=== PATIENT | male | born 1955 ===

== ENCOUNTER 2017-09-17 17:46 | Observation (INO) | payer MEDICAID, OTHER ==
[2017-09-17] MEDS ORDERED: Sodium Chloride 0.9% 1,000 ML IV STA ×3 (18:00→20:47)
--- NOTE | 2017-09-17 18:22 | ED PDOC ---
Arrival/HPI <Theodore Lopez - Last Filed: 09/17/17 20:18> - General Historian: Patient, EMS - History of Present Illness Time/Duration: Prior to Arrival <Nadja Daigle - Last Filed: 09/17/17 21:19> - General Chief Complaint: Alcohol Ingestion Time Seen by Provider: 09/17/17 17:59 - History of Present Illness Narrative History of Present Illness (Text): 09/17/17 18:18 62yr old male [place] by ambulance [place]. pt admits to drinking alcohol and denies any complaints. history is limited due to intoxication. (Nadja Daigle) Past Medical History - Provider Review Nursing Documentation Reviewed: Yes - Travel History Have you recently traveled outside [place] w/in the past 3 mons?: No - Infectious Disease Hx of Infectious Diseases: None - Psychiatric Hx Substance Use: (unknown) <Nadja Daigle - Last Filed: 09/17/17 21:19> Family/Social History - Physician Review Nursing Documentation Reviewed: Yes Family/Social History: Unknown Family HX Smoking Status: Unknown If Ever Smoked Hx Alcohol Use: Yes Hx Substance Use: (unknown) <Nadja Daigle - Last Filed: 09/17/17 21:19> Allergies/Home Meds <Theodore Lopez - Last Filed: 09/17/17 20:18> <Nadja Daigle - Last Filed: 09/17/17 21:19> Allergies/Adverse Reactions: Allergies Unobtainable Allergy (Verified 09/17/17 17:55) Home Medications: Home Meds Medication Instructions Recorded Confirmed Unobtainable 09/17/17 09/17/17 Review of Systems - Review of Systems Systems not reviewed;Unavailable: Intoxicated Cardiovascular: absent: Chest Pain Gastrointestinal: absent: Abdominal Pain Musculoskeletal: absent: Arthralgias <Nadja Daigle - Last Filed: 09/17/17 21:19> Physical Exam Vital Signs Reviewed: Yes Temperature: Afebrile Blood Pressure: Hypotensive Pulse: Regular Respiratory Rate: Normal Appearance: Positive for: Well-Appearing, Non-Toxic, Comfortable, Unkept Pain Distress: None Mental Status: Positive for: other (alert) Finger Stick Blood Glucose: 73 - Systems Exam Head: Present: Atraumatic Pupils: Present: PERRL Mouth: Present: Moist Mucous Membranes Respiratory/Chest: Present: Clear to Auscultation, Good Air Exchange. No: Respiratory Distress, Accessory Muscle Use, Wheezes, Decreased Breath Sounds, Rhonchi Cardiovascular: Present: Regular Rate and Rhythm. No: Tachycardic Abdomen: No: Tenderness, Distention, Rebound, Guarding Back: Present: Normal Inspection, Other (no ecchymosis, no abrasions, no lacerations, no erythema.). No: Midline Tenderness, Paraspinal Tenderness Upper Extremity: Present: Other (abrasion to right hand. ). No: Tenderness, Swelling Lower Extremity: Present: Other (abrasion to left knee. abrasion to right thigh ; no tenderness. ) Skin: Present: Warm, Dry Psychiatric: Present: Alert, Intoxicated <Nadja Daigle - Last Filed: 09/17/17 21:19> Vital Signs Temp Pulse Resp BP Pulse Ox 09/17/17 21:18 65 18 104/65 100 09/17/17 19:38 66 19 118/74 100 09/17/17 18:55 80 18 102/70 100 09/17/17 17:56 97.6 F 82 17 90/62 L 90 L Medical Decision Making <Theodore Lopez - Last Filed: 09/17/17 20:18> <Nadja Daigle - Last Filed: 09/17/17 21:19> ED Course and Treatment: 09/17/17 18:22 62yr old male BIBA for intoxication and mildly hypotension found [place] the park. admits to drinking ETOH today. pt is intoxicated; able to answer few questions. pt seen and evaluated by dr. guerrier. bp 95/65; pt given 1L NS iv bolus ekg; normal sinus rhythm at 75 bpm normal axis normal intervals no ST elevations cxr; wnl cbc wbc; 14.1 cmp; wnl trop: wnl ETOH; [address]: FINDINGS: Brain: Lacunar infarct in the left basal ganglia. No hemorrhage. No significant white matter disease. Ventricles: Unremarkable. No ventriculomegaly. Bones/joints: See below. Soft tissues: Unremarkable. Sinuses: Unremarkable as visualized. No acute sinusitis. Mastoid air cells: Unremarkable as visualized. No mastoid effusion. Nasal cavity/septum: Deformity of the left nasal bone. IMPRESSION: No acute findings Tylenol wnl Salicylate: wnl Urine drug screen: Urinalysis: wnl 09/17/17 19:37 pt reassessment; pt speaking, more alert; after 3 liters vitals improved. banana bag added. case discussed with dr. lopez; case discussed with dr. hu; will admit observational status to tele for AMS, syncope Impression; AMS, alcohol use, syncope admit observational status to tele (Nadja Daigle) - Lab Interpretations Lab Results: 09/17/17 18:00 09/17/17 18:00 Lab Results 09/17/17 20:56: Urine Color Yellow, Urine Appearance Clear, Urine pH 6.0, Ur Specific [place] 1.020, Urine Protein Trace H, Urine Glucose (UA) Negative, Urine Ketones Negative, Urine Blood Negative, Urine Nitrate Negative, Urine Bilirubin Negative, Urine Urobilinogen 0.2, Ur Leukocyte Esterase Negative, Urine RBC Pending, Urine WBC Pending 09/17/17 18:00: pO2 163 H, VBG pH 7.28 L, VBG pCO2 42.0, VBG HCO3 19.7 L, VBG Total CO2 21.0 L, VBG O2 Sat (Calc) 99.4 H, VBG Base Excess -6.8 L, VBG Potassium 3.1 L, Sodium 145.0, Chloride 117.0 H, Glucose 94, Lactate 1.7, FiO2 21.0, Venous Blood Potassium 3.1 L 09/17/17 18:00: Salicylates < 1 L, Acetaminophen < 10.0 L 09/17/17 18:00: WBC 14.1 H, RBC 3.96, Hgb 13.2 L, Hct 38.1 L, MCV 96.2, MCH 33.3 , MCHC 34.6, RDW 14.0, Plt Count 261, MPV 9.1, Gran % 73.7 H, Lymph % (Auto) 19.2 L, Will % (Auto) 6.5 H, Eos % (Auto) 0.1 L, Baso % (Auto) 0.5, Gran # 10.37 H, Lymph # (Auto) 2.7, Will # (Auto) 0.9 H, Eos # (Auto) 0.0, Baso # (Auto ) 0.07 09/17/17 18:00: Alcohol, Quantitative 218 H 09/17/17 18:00: Sodium 146, Chloride 109 H, Potassium 4.3, Carbon Dioxide 23, Anion Gap 18, BUN 16, Creatinine 1.1, Est GFR ( Amer) > 60, Est GFR (Non- Af Amer) > 60, Random Glucose 112 H, Calcium 8.6, Total Bilirubin 0.3, AST 50, ALT 22, Alkaline Phosphatase 68, Lactate Dehydrogenase 530, Total Creatine Kinase 213, Troponin I < 0.01, Total Protein 7.6, Albumin 4.3, Globulin 3.3, Albumin/Globulin Ratio 1.3 - RAD Interpretation Radiology Orders: 09/17/17 18:00 HEAD W/O CONTRAST [CT] Stat CHEST PORTABLE [RAD] Stat - Medication Orders Current Medication Orders: Sodium Chloride (Sodium Chloride 0.9%) 1,000 mls @ 999 mls/hr IV .Q1H1M STA Stop: 09/17/17 21:47 Last Admin: 09/17/17 21:03 Dose: 999 mls/hr eMAR Start Stop Document 09/17/17 21:03 RD (Rec: 09/17/17 21:03 RD [id number]) Intravenous Solution Start Date 09/17/17 Start Time 21:03 End Date 09/17/17 End time 22:03 Total Infusion Time 60 Multivitamins/Vitamin C 10 ml/Thiamine HCl 100 mg/ Folic Acid 1 mg/ Sodium Chloride 1,011.2 mls @ 1,000 mls/hr IV .Q1H1M ONE Stop: 09/17/17 22:12 Discontinued Medications Sodium Chloride (Sodium Chloride 0.9%) 1,000 mls @ 999 mls/hr IV .Q1H1M STA Stop: 09/17/17 19:00 Last Admin: 09/17/17 18:27 Dose: 999 mls/hr eMAR Start Stop Document 09/17/17 18:27 [facility] [facility]17[facility]17 18[id number] Intravenous Solution Start Date 09/17/17 Start Time 18:10 End Date 09/17/17 End time 19:11 Total Infusion Time 61 Sodium Chloride (Sodium Chloride 0.9%) 1,000 mls @ 999 mls/hr IV .Q1H1M STA Stop: 09/17/17 19:52 Last Admin: 09/17/17 18:57 Dose: 999 mls/hr eMAR Start Stop Document 09/17/17 18:57 EQ (Rec: 09/17/17 18:57 EQ [facility] [id number] Intravenous Solution Start Date 09/17/17 Start Time 18:57 - PA / CHECK CLERK / Resident Statement / has reviewed & agrees with the documentation as recorded. / has examined the patient and agrees with the treatment plan. <Theodore Lopez - Last Filed: 09/17/17 20:18> Disposition/Present on Arrival <Theodore Lopez - Last Filed: 09/17/17 20:18> - Present on Arrival Any Indicators Present on Arrival: No History of DVT/PE: No History of Uncontrolled Diabetes: No Urinary Catheter: No History of Decub. Ulcer: No History Surgical Site Infection Following: None - Disposition Have Diagnosis and Disposition been Completed?: Yes Disposition Time: 21:15 Patient Plan: Observation <Nadja Daigle - Last Filed: 09/17/17 21:19> - Disposition Diagnosis: Altered mental status, Alcohol use Disposition: HOSPITALIZED Patient Problems: Current Active Problems Problem Status Onset Alcohol use Acute Altered mental status Acute Condition: FAIR Forms: [employer] (Polish)
[2017-09-17 18:49] LABS: VENOUS BLOOD GAS BASE EXCESS -6.8 mmol/L (0.0-2.0); VENOUS BLOOD GAS PO2 163 mm/Hg (30-55); VENOUS BLOOD PH 7.28 (7.32-7.43)
[2017-09-17 18:55] LABS: ACETAMINOPHEN < 10.0 ug/ml (10.0-20.0); SALICYLATE < 1 mg/dL (2.0-20.0)
[2017-09-17 18:58] LABS: ALB/GLOB RATIO 1.3 (1.1-1.8); ALBUMIN 4.3 g/dL (3.0-4.8); ALT/SGPT 22 U/L (7-56); AST/SGOT 50 U/L (17-59); BLOOD UREA NITROGEN 16 mg/dL (7-21); CALCIUM 8.6 mg/dL (8.4-10.5); GFR AFRICAN-AMERICAN > 60; GFR NON-AFRICAN AMERICAN > 60
[2017-09-17 19:02] LABS: BASO # 0.07 K/mm3 (0.0-2.0); BASO % 0.5 % (0.0-3.0); EOS % 0.1 % (1.5-5.0); GRAN # 10.37 (1.4-6.5); GRAN % 73.7 % (50.0-68.0); HEMOGLOBIN 13.2 g/dL (14.0-18.0); LYMPH # 2.7 (1.2-3.4); LYMPH % 19.2 % (22.0-35.0); MEAN CELL VOLUME 96.2 fl (80.0-105.0); MEAN CORPUSCULAR HEMOGLOBIN 33.3 pg (25.0-35.0); MEAN CORPUSCULAR HGB CONC 34.6 g/dl (31.0-37.0); MEAN PLATELET VOLUME 9.1 fl (7.0-11.0); MONO # 0.9 (0.1-0.6); MONO % 6.5 % (1.0-6.0); RBC 3.96 10^6/uL (3.5-6.1); WHITE BLOOD COUNT 14.1 10^3/ul (4.5-11.0)
[2017-09-17 19:08] LABS: TROPONIN I < 0.01 ng/mL
[2017-09-17 21:03] LABS: URINE BILIRUBIN NEGATIVE (NEGATIVE); URINE BLOOD NEGATIVE (NEGATIVE); URINE GLUCOSE (UA) NEGATIVE (NEGATIVE); URINE LEUKOCYTE ESTERASE NEGATIVE Leu/uL (NEGATIVE); URINE PROTEIN TRACE mg/dL (<30 mg/dL); URINE UROBILINOGEN 0.2 E.U./dL (<1 E.U./dL)
[2017-09-17 21:04] LABS: URINE APPEARANCE CLEAR (CLEAR); URINE COLOR YELLOW (YELLOW)
[2017-09-17] MEDS ORDERED: Multivitamin (MVI) 10 ML, Thiamine 100 MG, Folic Acid 1 MG in Sodium Chloride 0.9% 1,00... IV ONE (21:12)
[2017-09-17 21:20] LABS: URINE BACTERIA OCC (NEG); URINE RBC 0 - 2 /hpf (0-2); URINE WBC 0 - 2 /hpf (0-6)
[2017-09-17 21:35] LABS: BARBITURATES, UR NEGATIVE (NEGATIVE); BENZODIAZEPINES, UR NEGATIVE (NEGATIVE); OPIATES, UR NEGATIVE (NEGATIVE); PHENCYCLIDINE, UR NEGATIVE (NEGATIVE)
--- NOTE | 2017-09-17 22:27 | CP.PCM.HP ---
<Coleman You - Last Filed: 09/18/17 06:11> History of Present Illness - History of Present Illness History of Present Illness: 62 year old belgian speaking male with past medical history of alcohol abuse in [facility] brought into by ambulance to the ED after being found in the park on a bench sleeping. Patient was accompanied bedside with son. Some history obtained from son. [place] been in the [place] 2 [place]. Patient states he has been drinking since Monday evening, has several drinks does not recall how many and then "passed out". Patient denies any trauma to the head or any falls. The son says he lives with the father in [place] and has a history of drinking a lot back home in [facility]. Patient denies any chest pain, SOB, fever, chills, cough, nausea, vomiting, abdominal pain, or any other complaints. Patient states he feels well. 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 [facility] Allergies: denies Social: heavy alcohol use, 4-5 cigarettes a day, denies drug use Meds: none Family History: none Present on Admission - Present on Admission Any Indicators Present on Admission: No Review of Systems - Constitutional Constitutional: absent: Chills, Fever - EENT Eyes: absent: Blind Spots, Change in Vision Nose/Mouth/Throat: absent: Nasal Congestion - Cardiovascular Cardiovascular: absent: Chest Pain, Chest Pain with Activity, Dyspnea, Lightheadedness, Palpitations, Rapid Heart Rate - Respiratory Respiratory: absent: Cough, Dyspnea, Dyspnea on Exertion, Chest Congestion, Excessive Mucous Production - Gastrointestinal Gastrointestinal: absent: Abdominal Pain, Coffee Ground Emesis, Constipation, Cramping, Heartburn, Melena, Nausea, Vomiting - Genitourinary Genitourinary: absent: Change in Urinary Stream, Difficulty Urinating - Musculoskeletal Musculoskeletal: absent: Abnormal Gait, Atrophy, Back Pain, Muscle Weakness, Myalgias, Numbness, Stiffness, Tingling - Integumentary Integumentary: absent: Swelling - Neurological Neurological: absent: Abnormal Gait, Abnormal Hearing, Confusion, Convulsions, Disequilibrium, Dizziness, Numbness, Focal Weakness, Headaches, Loss of Vision, Paresthesias, Syncope, Tingling, Weakness Past Patient History - Infectious Disease Hx of Infectious Diseases: None - Past Social History Smoking Status: Unknown If Ever Smoked - PSYCHIATRIC Hx Substance Use: (unknown) - SURGICAL HISTORY Hx Surgeries: No (unable to obtain) Meds Allergies/Adverse Reactions: Allergies Allergy/AdvReac Type Severity Reaction Status Date / Time No Known Allergies Allergy N/A Verified 09/18/17 21:45 Physical Exam - Constitutional Appears: Non-toxic, No Acute Distress, Unkempt - Head Exam Head Exam: ATRAUMATIC, NORMAL INSPECTION, NORMOCEPHALIC - Eye Exam Eye Exam: EOMI, Normal appearance, PERRL - ENT Exam ENT Exam: Mucous Membranes Moist - Neck Exam Neck exam: Positive for: Normal Inspection - Respiratory Exam Respiratory Exam: Clear to Auscultation Bilateral, NORMAL BREATHING PATTERN - Cardiovascular Exam Cardiovascular Exam: REGULAR RHYTHM, +S1, +S2 - GI/Abdominal Exam GI & Abdominal Exam: Soft. absent: Distended, Guarding, Hernia, Tenderness - Back Exam Back exam: absent: CVA tenderness (L), CVA tenderness (R) - Neurological Exam Neurological exam: Alert, CN II-XII Intact, Oriented x3 - Skin Skin Exam: Dry, Warm Results - Vital Signs Recent Vital Signs: Last Vital Signs Temp 97.6 F 09/17/17 17:56 Pulse 66 09/17/17 21:59 Resp 18 09/17/17 21:59 BP 108/60 09/17/17 21:59 Pulse Ox 100 09/17/17 21:59 - Labs Result Diagrams: 09/17/17 18:00 09/17/17 18:00 Assessment & Plan - Assessment and Plan (Free Text) Assessment: 62 year old belgian speaking male with past medical history of alcohol abuse in [facility] brought into by ambulance to the ED after being [place] the park on a bench sleeping. Patient was admitted for AMS. He was found to have an alcohol level of 218 and drug tox positive for cannibinoids. Plan: 1. AMS likely secondary to Alcohol Use -Alcohol level 218 -EKG pending -CT Head: -magnesium and phosphate pending -banana bag -NPO -CIIN protocol -urine tox positive for cannibinoids -initial troponin negative 2. Hypotension -BP initially 91/57 -3L NS given in ED -continue IV fluids -continue to monitor 3. Leukocytosis -likely reactive at 14.1 -blood cultures pending -urine cultures pending DVT: Heparin GI: Protonix PT evaluation pending NPO <Gallito,Majdi - Last Filed: 09/19/17 05:24> Results - Vital Signs Recent Vital Signs: Last Vital Signs Temp 98 F 09/19/17 00:01 Pulse 46 L 09/19/17 02:00 Resp 20 09/19/17 00:01 BP 104/71 09/19/17 00:01 Pulse Ox 98 09/19/17 00:01 - Labs Result Diagrams: 09/18/17 05:30 09/18/17 05:30 Labs: Laboratory Results - last 24 hr 09/18/17 09/18/17 09/18/17 05:30 05:30 06:00 WBC 10.8 D RBC 3.40 L Hgb 11.1 L D Hct 33.2 L MCV 97.6 MCH 32.6 MCHC 33.4 RDW 14.5 Plt Count 218 MPV 8.8 Gran % 63.1 Lymph % (Auto) 28.3 Edgar % (Auto) 7.5 H Eos % (Auto) 0.6 L Baso % (Auto) 0.5 Gran # 6.83 H Lymph # (Auto) 3.1 Edgar # (Auto) 0.8 H Eos # (Auto) 0.1 Baso # (Auto) 0.05 Sodium 145 Potassium 4.4 Chloride 113 H Carbon Dioxide 24 Anion Gap 13 BUN 13 Creatinine 0.8 Est GFR ( Amer) > 60 Est GFR (Non-Af Amer) > 60 Random Glucose 75 Calcium 7.5 L Phosphorus 3.5 Magnesium 1.7 Total Bilirubin 0.3 AST 27 ALT 31 Alkaline Phosphatase 59 Total Protein 5.6 L Albumin 3.0 Globulin 2.6 Albumin/Globulin Ratio 1.1 Triglycerides 67 Cholesterol 124 L LDL Cholesterol Direct 58 HDL Cholesterol 52 Attending/Attestation - Attestation I have personally seen and examined this patient.: Yes I have fully participated in the care of the patient.: Yes I have reviewed all pertinent clinical information: Yes
[2017-09-17] MEDS: Sodium Chloride 0.9% 1,000 ML IV SCH (22:48)
[2017-09-17 22:49] VITALS: BMI 23.1
[2017-09-17 23:57] VITALS: RESP 20
[2017-09-18 06:34] LABS: BASO # 0.05 K/mm3 (0.0-2.0); BASO % 0.5 % (0.0-3.0); EOS # 0.1 (0.0-0.7); EOS % 0.6 % (1.5-5.0); GRAN # 6.83 (1.4-6.5); GRAN % 63.1 % (50.0-68.0); LYMPH # 3.1 (1.2-3.4); LYMPH % 28.3 % (22.0-35.0); MEAN CELL VOLUME 97.6 fl (80.0-105.0); MEAN CORPUSCULAR HEMOGLOBIN 32.6 pg (25.0-35.0); MEAN CORPUSCULAR HGB CONC 33.4 g/dl (31.0-37.0); MEAN PLATELET VOLUME 8.8 fl (7.0-11.0); MONO # 0.8 (0.1-0.6); MONO % 7.5 % (1.0-6.0); RBC 3.4 10^6/uL (3.5-6.1); RED CELL DISTRIBUTION WIDTH 14.5 % (11.5-14.5); WHITE BLOOD COUNT 10.8 10^3/ul (4.5-11.0)
[2017-09-18 06:42] LABS: HEMOGLOBIN 11.1 g/dL (14.0-18.0)
[2017-09-18 07:11] LABS: ALB/GLOB RATIO 1.1 (1.1-1.8); ALT/SGPT 31 U/L (7-56); AST/SGOT 27 U/L (17-59); BLOOD UREA NITROGEN 13 mg/dL (7-21); CALCIUM 7.5 mg/dL (8.4-10.5); GFR AFRICAN-AMERICAN > 60; GFR NON-AFRICAN AMERICAN > 60
--- NOTE | 2017-09-18 08:29 | CT ---
Date of service: 09/17/2017 PROCEDURE: CT HEAD WITHOUT CONTRAST. HISTORY: AMS COMPARISON: None available. TECHNIQUE: Axial computed tomography images were obtained through the head/brain without intravenous contrast. Coronal and sagittal reconstructed images. Radiation dose: Total exam DLP = 901.87 mGy-cm. This CT exam was performed using one or more of the following dose reduction techniques: Automated exposure control, adjustment of the mA and/or kV according to patient size, and/or use of iterative reconstruction technique. FINDINGS: HEMORRHAGE: No intracranial hemorrhage. BRAIN: No mass effect or edema. No atrophy or chronic microvascular ischemic changes. VENTRICLES: Unremarkable. No hydrocephalus. CALVARIUM: Unremarkable. PARANASAL SINUSES: Unremarkable as visualized. No significant inflammatory changes. MASTOID AIR CELLS: Unremarkable as visualized. No inflammatory changes. OTHER FINDINGS: Incidental finding(s): Old nasal bone fractures. IMPRESSION: No acute intracranial abnormalities. No significant findings to account for the clinical presentation. Concordant results (preliminary interpretation) provided by [facility]. Procedure Completed: 19:18 Preliminary ([facility]Rad) Report: Dictated and Authenticated: 19:36. Final Interpretation: 08:27. September 18, 2017.
--- NOTE | 2017-09-18 08:52 | CP.PCM.PN ---
<Abhishek Herreramurray - Last Filed: 09/18/17 15:33> Subjective - Date & Time of Evaluation Date of Evaluation: 09/18/17 Time of Evaluation: 12:38 - Subjective Subjective: Sanjuana Herrera PGY1 Progress Note for Dr. Paradise Menendez Mr. Ward was seen at bedside this morning. He denied any overnight complaints. He says he was brought to the hospital for drinking and falling asleep. He reports drinking 3 mini bottles yesterday, but denies regular alcohol use. He also reported smoking some sort of cigar yesterday that made him dizzy, possibly marijuana. He denies any dizziness, headache, shortness of breath, chest pain, abdominal pain, nausea, vomiting, or dysuria. Objective - Vital Signs/Intake and Output Vital Signs (last 24 hours): Temp Pulse Resp BP Pulse Ox 97.9 F 62 20 100/67 97 09/18/17 06:00 09/18/17 06:00 09/18/17 06:00 09/18/17 06:00 09/18/17 06:00 Intake and Output: 09/18/17 09/18/17 06:59 18:59 Intake Total 900 Output Total 2 Balance 898 - Medications Medications: Current Medications Folic Acid (Folic Acid) 1 mg PO DAILY [facility] Heparin Sodium (Porcine) (Heparin) 5,000 units SC Q12 [facility] PRN Reason: Protocol Sodium Chloride (Sodium Chloride 0.9%) 1,000 mls @ 100 mls/hr IV .Q10H [facility] Last Admin: 09/17/17 22:48 Dose: 100 mls/hr Lorazepam (Ativan) 1 mg IVP Q6H PRN; Protocol PRN Reason: Seizure activity Multivitamins (Thera Tab) 1 tab PO 0800 [facility] Pantoprazole Sodium (Protonix Inj) 40 mg IVP DAILY [facility] Thiamine HCl (Vitamin B1 Tab) 100 mg PO DAILY [facility] - Labs Labs: 09/18/17 05:30 09/18/17 05:30 - Constitutional Appears: Well, No Acute Distress - Head Exam Head Exam: ATRAUMATIC, NORMOCEPHALIC - Eye Exam Eye Exam: EOMI, Normal appearance Pupil Exam: NORMAL ACCOMODATION - ENT Exam ENT Exam: Mucous Membranes Moist - Respiratory Exam Respiratory Exam: Decreased Breath Sounds. absent: Rales, Rhonchi, Wheezes, Stridor - Cardiovascular Exam Cardiovascular Exam: REGULAR RHYTHM, +S1, +S2 - GI/Abdominal Exam GI & Abdominal Exam: Soft, Normal Bowel Sounds. absent: Distended, Firm, Tenderness - Neurological Exam Neurological Exam: Alert, Awake, Oriented x3 - Psychiatric Exam Psychiatric exam: Normal Affect, Normal Mood - Skin Skin Exam: Normal Color Assessment and Plan - Assessment and Plan (Free Text) Assessment: 62 year old syriac speaking male with past medical history of alcohol abuse in [facility] brought into by ambulance to the ED [place] the park [place]. Patient was admitted for AMS. He was found to have an alcohol level of 218 and drug tox positive for cannibinoids. Plan: AMS likely secondary to Alcohol Use - Alcohol level 218 - urine tox positive for cannibinoids - EKG pending - CT Head: no acute changes - CIWA 1 - troponin negative x1 - advanced diet - start thiamine and folate Hypotension - BP initially 91/57, now 100/67 - likely secondary to dehydration - 3L NS given in ED - continue IV fluids - continue to monitor Leukocytosis - likely reactive, now 10.8 from 14.1 - blood cultures pending - urine cultures pending Tobacco use - reports 5 cigarettes a day for many years - started on nicotine patch - counseled on tobacco cessation DVT: Heparin GI: Protonix PT evaluation pending Patient seen with and case reviewed by Dr. Paradise Menendez. <Paradise Menendez R - Last Filed: 09/18/17 21:40> Objective - Vital Signs/Intake and Output Vital Signs (last 24 hours): Temp Pulse Resp BP Pulse Ox 98.4 F 67 20 110/77 99 09/18/17 17:38 09/18/17 18:00 09/18/17 17:38 09/18/17 17:38 09/18/17 10:19 Intake and Output: 09/18/17 09/19/17 18:59 06:59 Intake Total 1500 1300 Output Total 2400 Balance -900 1300 - Medications Medications: Current Medications Folic Acid (Folic Acid) 1 mg PO DAILY [facility] Last Admin: 09/18/17 10:19 Dose: 1 mg Heparin Sodium (Porcine) (Heparin) 5,000 units SC Q12 [facility] PRN Reason: Protocol Last Admin: 09/18/17 21:09 Dose: 5,000 units Sodium Chloride (Sodium Chloride 0.9%) 1,000 mls @ 100 mls/hr IV .Q10H [facility] Last Admin: 09/18/17 21:10 Dose: 100 mls/hr Lorazepam (Ativan) 1 mg IVP Q6H PRN; Protocol PRN Reason: Seizure activity Multivitamins (Thera Tab) 1 tab PO 0800 [facility] Nicotine (Nicoderm Cq) 1 patch TD DAILY [facility] Last Admin: 09/18/17 10:19 Dose: 1 patch Pantoprazole Sodium (Protonix Ec Tab) 40 mg PO 0600 [facility] Thiamine HCl (Vitamin B1 Tab) 100 mg PO DAILY [facility] Last Admin: 09/18/17 10:19 Dose: 100 mg - Labs Labs: 09/18/17 05:30 09/18/17 05:30 Attending/Attestation - Attestation I have personally seen and examined this patient.: Yes I have fully participated in the care of the patient.: Yes I have reviewed all pertinent clinical information, including history, physical exam and plan: Yes Notes (Text): Patient seen and examined by me at 10:05AM with resident. Case including HPI, physical exam, and assessment and plan discussed with resident. Agree with above with following additions/corrections. Patient is a 62-year-old male with past medical history significant for alcohol abuse and tobacco abuse that presented to the emergency room [place] the park on [place]. Patient is awake and alert today. He states that he does not normally drink however per records patient's son stated that patient has been drinking for quite some time. Patient states he is also unaware of having used marijuana prior to coming to the hospital. Patient states he is feeling well. He denies any headaches or dizziness. No change in vision. No lightheadedness. No feelings of confusion. No nausea, vomiting, or abdominal pain. No fevers or chills. No chest pain or shortness of breath. No dysuria. No diarrhea or constipation. Physical exam: Gen: Awake and alert sitting up in bed in no acute distress HEENT: Normocephalic, atraumatic. Extraocular muscles intact, pupils equal reactive. No scleral icterus. Oropharynx is pink and moist, no pharyngeal erythema or exudate appreciated. Neck is supple. Cardiovascular: Normal rhythm. Normal S1, S2. No murmurs, rubs, or gallops appreciated Pulmonary: Normal respiratory effort. Decreased breath sounds. No rhonchi, rales or wheezing appreciated. Gastrointestinal: Soft, nontender, nondistended, positive bowel sounds all 4 quadrants, no guarding. Musculoskeletal: Normal range of motion all extremities, no calf tenderness, no edema appreciated Central nervous system: AAO x 3. Cranial nerves 2-12 mostly intact Dermatologic: Skin warm and dry Assessment and plan: Patient is a 62-year-old male with past medical history significant for alcohol abuse and tobacco abuse that presented to the emergency room [place] the park on [place]. Patient was found to have altered mental status likely secondary to alcohol and marijuana use. 1. Altered mental status secondary to Alcohol intoxication and marijuana use. Resolved. Head CT per radiologist showed no acute intracranial abnormalities, no significant findings to account for her clinical presentation. Continue with CIWA protocol. Diet advanced. No signs of infection. 2. Alcohol intoxication and likely abuse. Alcohol level 218 on admission. Patient counseled on cessation. Continue Cipro protocol. Continue with multivitamin, thiamine, and folic acid. CIWA score of 1. Monitor for withdrawal symptoms. 3. Marijuana use. Patient counseled on cessation. Patient denies using. UDS positive for cannabinoids 4. Leukocytosis. Likely reactive. Resolved. Continue to monitor. 5. Hypotension. Likely secondary to dehydration and marijuana and alcohol use. Resolved with IV fluids. No signs of infection. Continue to monitor. 6. Tobacco abuse. Patient counseled on cessation. Started on nicotine patch. 7. GI/DVT prophylaxis. Protonix and heparin. 8. Patient is a full code Case was discussed in detail with the patient regarding current diagnosis and treatment plan.
[2017-09-18] MEDS: Sodium Chloride 0.9% 1,000 ML IV SCH ×3 (10:10→21:10)
--- NOTE | 2017-09-18 10:36 | RAD ---
Date of service: 09/17/2017 HISTORY: Altered mental status. COMPARISON: No prior. FINDINGS: LUNGS: No active pulmonary disease. PLEURA: No significant pleural effusion identified, no pneumothorax apparent. CARDIOVASCULAR: No radiographic findings to suggest acute or significant cardiovascular disease. OSSEOUS STRUCTURES: No significant abnormalities. VISUALIZED UPPER ABDOMEN: Normal. OTHER FINDINGS: None. IMPRESSION: No active disease.
[2017-09-18 10:38] LABS: HDL CHOLESTEROL 52 mg/dL (29-60)
[2017-09-18 10:50] LABS: LDL CHOLESTEROL 58 mg/dL (0-129)
--- NOTE | 2017-09-18 12:57 | CARD ---
APPROVED REPORT Date of service: 09/17/2017 EKG Measurement Heart [id number] <Conclusion> Normal sinus rhythm Normal ECG
[2017-09-19 00:04] VITALS: TEMP 98
[2017-09-19] MEDS: Sodium Chloride 0.9% 1,000 ML IV SCH (05:23)
[2017-09-19] MEDS ORDERED: Pantoprazole 40 mg EC Tab PO SCH ×2 (06:00→07:30)
[2017-09-19 06:19] VITALS: BP 108/74; O2SAT 97
[2017-09-19 06:35] LABS: BASO # 0.05 K/mm3 (0.0-2.0); BASO % 0.5 % (0.0-3.0); EOS # 0.1 (0.0-0.7); EOS % 0.7 % (1.5-5.0); GRAN # 6.23 (1.4-6.5); GRAN % 61.3 % (50.0-68.0); HEMOGLOBIN 11.6 g/dL (14.0-18.0); LYMPH # 2.9 (1.2-3.4); LYMPH % 28.6 % (22.0-35.0); MEAN CELL VOLUME 97.2 fl (80.0-105.0); MEAN CORPUSCULAR HEMOGLOBIN 32.7 pg (25.0-35.0); MEAN CORPUSCULAR HGB CONC 33.6 g/dl (31.0-37.0); MONO # 0.9 (0.1-0.6); MONO % 8.9 % (1.0-6.0); RBC 3.55 10^6/uL (3.5-6.1); RED CELL DISTRIBUTION WIDTH 14.2 % (11.5-14.5); WHITE BLOOD COUNT 10.2 10^3/ul (4.5-11.0)
[2017-09-19 07:21] LABS: ALBUMIN 2.9 g/dL (3.0-4.8); ALT/SGPT 29 U/L (7-56); AST/SGOT 31 U/L (17-59); BLOOD UREA NITROGEN 15 mg/dL (7-21); CALCIUM 7.9 mg/dL (8.4-10.5); GFR AFRICAN-AMERICAN > 60; GFR NON-AFRICAN AMERICAN > 60
--- NOTE | 2017-09-19 07:51 | CP.PCM.PN ---
Objective - Vital Signs/Intake and Output Vital Signs (last 24 hours): Temp Pulse Resp BP Pulse Ox 98 F 52 L 20 108/74 97 09/19/17 06:00 09/19/17 06:00 09/19/17 06:00 09/19/17 06:00 09/19/17 06:00 Intake and Output: 09/19/17 09/19/17 06:59 18:59 Intake Total 2900 Output Total 700 Balance 2200 - Medications Medications: Current Medications Folic Acid (Folic Acid) 1 mg PO DAILY [facility] Last Admin: 09/18/17 10:19 Dose: 1 mg Heparin Sodium (Porcine) (Heparin) 5,000 units SC Q12 MAGGIE PRN Reason: Protocol Last Admin: 09/18/17 21:09 Dose: 5,000 units Sodium Chloride (Sodium Chloride 0.9%) 1,000 mls @ 100 mls/hr IV .Q10H [facility] Last Admin: 09/19/17 05:23 Dose: 100 mls/hr Lorazepam (Ativan) 1 mg IVP Q6H PRN; Protocol PRN Reason: Seizure activity Multivitamins (Thera Tab) 1 tab PO 0800 [facility] Nicotine (Nicoderm Cq) 1 patch TD DAILY [facility] Last Admin: 09/18/17 10:19 Dose: 1 patch Pantoprazole Sodium (Protonix Ec Tab) 40 mg PO 0600 [facility] Last Admin: 09/19/17 05:22 Dose: 40 mg Thiamine HCl (Vitamin B1 Tab) 100 mg PO DAILY [facility] Last Admin: 09/18/17 10:19 Dose: 100 mg - Labs Labs: 09/19/17 05:40 09/19/17 05:40
[2017-09-19] MEDS ORDERED: Multivitamin Therapeutic Tab PO SCH (08:00)
[2017-09-19 12:20] VITALS: PULSE 52
--- NOTE | 2017-09-19 13:01 | CP.PCM.DIS ---
<ErikadominikSanjuana - Last Filed: 09/19/17 12:57> Provider - Provider Date of Admission: 09/17/17 21:09 Attending physician: Paradise Menendez DO Primary care physician: NO PRIMARY CARE PROVIDER Time Spent in preparation of Discharge (in minutes): 70 Hospital Course - Lab Results Lab Results: Micro Results 09/18/17 04:00 Urine Urine Culture - Final No Growth (<1,000 CFU/ML) Most Recent Lab Values WBC 10.2 10^3/ul (4.5-11.0) 09/19/17 05:40 RBC 3.55 10^6/uL (3.5-6.1) 09/19/17 05:40 Hgb 11.6 g/dL (14.0-18.0) L 09/19/17 05:40 Hct 34.5 % (42.0-52.0) L 09/19/17 05:40 MCV 97.2 fl (80.0-105.0) 09/19/17 05:40 MCH 32.7 pg (25.0-35.0) 09/19/17 05:40 MCHC 33.6 g/dl (31.0-37.0) 09/19/17 05:40 RDW 14.2 % (11.5-14.5) 09/19/17 05:40 Plt Count 215 10^3/uL (120.0-450.0) 09/19/17 05:40 MPV 9.0 fl (7.0-11.0) 09/19/17 05:40 Gran % 61.3 % (50.0-68.0) 09/19/17 05:40 Lymph % (Auto) 28.6 % (22.0-35.0) 09/19/17 05:40 [place] % (Auto) 8.9 % (1.0-6.0) H 09/19/17 05:40 Eos % (Auto) 0.7 % (1.5-5.0) L 09/19/17 05:40 Baso % (Auto) 0.5 % (0.0-3.0) 09/19/17 05:40 Gran # 6.23 (1.4-6.5) 09/19/17 05:40 Lymph # (Auto) 2.9 (1.2-3.4) 09/19/17 05:40 [place] # (Auto) 0.9 (0.1-0.6) H 09/19/17 05:40 Eos # (Auto) 0.1 (0.0-0.7) 09/19/17 05:40 Baso # (Auto) 0.05 K/mm3 (0.0-2.0) 09/19/17 05:40 pO2 163 mm/Hg (30-55) H 09/17/17 18:00 VBG pH 7.28 (7.32-7.43) L 09/17/17 18:00 VBG pCO2 42.0 (40-60) 09/17/17 18:00 VBG HCO3 19.7 mmol/l (21-28) L 09/17/17 18:00 VBG Total CO2 21.0 mmol.L (22-28) L 09/17/17 18:00 VBG O2 Sat (Calc) 99.4 % (40-65) H 09/17/17 18:00 VBG Base Excess -6.8 mmol/L (0.0-2.0) L 09/17/17 18:00 VBG Potassium 3.1 mmol/L (3.6-5.2) L 09/17/17 18:00 Sodium 145.0 mmol/L (132-148) 09/17/17 18:00 Chloride 117.0 mmol/L (98-107) H 09/17/17 18:00 Glucose 94 mg/dl (75-110) 09/17/17 18:00 Lactate 1.7 mmol/L (0.7-2.1) 09/17/17 18:00 FiO2 21.0 % 09/17/17 18:00 Sodium 140 mmol/L (132-148) 09/19/17 05:40 Potassium 4.0 mmol/L (3.6-5.0) 09/19/17 05:40 Chloride 106 mmol/L (98-107) 09/19/17 05:40 Carbon Dioxide 28 mmol/L (21-33) 09/19/17 05:40 Anion Gap 10 (10-20) 09/19/17 05:40 BUN 15 mg/dL (7-21) 09/19/17 05:40 Creatinine 0.7 mg/dl (0.8-1.5) L 09/19/17 05:40 Est GFR ( Amer) > 60 09/19/17 05:40 Est GFR (Non-Af Amer) > 60 09/19/17 05:40 Random Glucose 85 mg/dL (70-110) 09/19/17 05:40 Calcium 7.9 mg/dL (8.4-10.5) L 09/19/17 05:40 Phosphorus 2.4 mg/dL (2.5-4.5) L 09/19/17 05:40 Magnesium 1.7 mg/dL (1.7-2.2) 09/19/17 05:40 Total Bilirubin 0.8 mg/dL (0.2-1.3) 09/19/17 05:40 AST 31 U/L (17-59) 09/19/17 05:40 ALT 29 U/L (7-56) 09/19/17 05:40 Alkaline Phosphatase 57 U/L (38-126) 09/19/17 05:40 Lactate Dehydrogenase 530 U/L (333-699) 09/17/17 18:00 Total Creatine Kinase 213 U/L (35-230) 09/17/17 18:00 Troponin I < 0.01 ng/mL 09/17/17 18:00 Total Protein 5.7 g/dL (5.8-8.3) L 09/19/17 05:40 Albumin 2.9 g/dL (3.0-4.8) L 09/19/17 05:40 Globulin 2.8 gm/dL 09/19/17 05:40 Albumin/Globulin Ratio 1.0 (1.1-1.8) L 09/19/17 05:40 Triglycerides 67 mg/dL (35-160) 09/18/17 06:00 Cholesterol 124 mg/dL (130-200) L 09/18/17 06:00 LDL Cholesterol Direct 58 mg/dL (0-129) 09/18/17 06:00 HDL Cholesterol 52 mg/dL (29-60) 09/18/17 06:00 Venous Blood Potassium 3.1 mmol/L (3.6-5.2) L 09/17/17 18:00 Urine Color Yellow (YELLOW) 09/17/17 20:56 Urine Appearance Clear (CLEAR) 09/17/17 20:56 Urine pH 6.0 (4.7-8.0) 09/17/17 20:56 Ur Specific Marshall 1.020 (1.005-1.035) 09/17/17 20:56 Urine Protein Trace mg/dL (<30 mg/dL) H 09/17/17 20:56 Urine Glucose (UA) Negative mg/dL (NEGATIVE) 09/17/17 20:56 Urine Ketones Negative mg/dL (NEGATIVE) 09/17/17 20:56 Urine Blood Negative (NEGATIVE) 09/17/17 20:56 Urine Nitrate Negative (NEGATIVE) 09/17/17 20:56 Urine Bilirubin Negative (NEGATIVE) 09/17/17 20:56 Urine Urobilinogen 0.2 E.U./dL (<1 E.U./dL) 09/17/17 20:56 Ur Leukocyte Esterase Negative Tim/uL (NEGATIVE) 09/17/17 20:56 Urine RBC 0 - 2 /hpf (0-2) 09/17/17 20:56 Urine WBC 0 - 2 /hpf (0-6) 09/17/17 20:56 Ur Epithelial Cells None /hpf (0-5) 09/17/17 20:56 Urine Bacteria Occ (NEG) 09/17/17 20:56 Salicylates < 1 mg/dL (2.0-20.0) L 09/17/17 18:00 Urine Opiates Screen Negative (NEGATIVE) 09/17/17 20:56 Urine Methadone Screen Negative (NEGATIVE) 09/17/17 20:56 Acetaminophen < 10.0 ug/ml (10.0-20.0) L 09/17/17 18:00 Ur Barbiturates Screen Negative (NEGATIVE) 09/17/17 20:56 Ur Phencyclidine Scrn Negative (NEGATIVE) 09/17/17 20:56 Ur Amphetamines Screen Negative (NEGATIVE) 09/17/17 20:56 U Benzodiazepines Scrn Negative (NEGATIVE) 09/17/17 20:56 U Oth Cocaine Metabols Negative (NEGATIVE) 09/17/17 20:56 U Cannabinoids Screen Positive (NEGATIVE) H 09/17/17 20:56 Alcohol, Quantitative 218 mg/dL (0-10) H 09/17/17 18:00 - Hospital Course Hospital Course: Mr. Ward is a 62 year old sami speaking male with past medical history of alcohol abuse in [place] brought into by ambulance to the ED [place] the park on [place] sleeping. Patient was accompanied bedside with son. Patient stated he has been drinking since Monday evening, has several drinks does not recall how many and then "passed out". Patient denies any trauma to the head or any falls. The son said he lives with the father in [place] and has a history of drinking a lot back home in [place]. Patient denies any chest pain, SOB, fever, chills, cough, nausea, vomiting, abdominal pain, or any other complaints. In the ED, pt was given 3L NS and banana bag. Labs showed an alcohol level of 218 and a Utox + for cannibinoids. CT of the head was unremarkable. Pt was admitted for altered mental status. Upon admission, patient had no complaints. He was AAOx3. CIWA protocol was initiated and score was 1. He was started on thiamine and folate. PT evaluated him and recommended home with no services. The following day, the patient had no acute events. He was AAOx3 and CIWA score was 0. Patient was discharged with instructions to follow up with primary care. He was counseled on substance abuse cessation. Discharge Exam - Head Exam Head Exam: ATRAUMATIC, NORMOCEPHALIC - Eye Exam Eye Exam: EOMI, PERRL Pupil Exam: NORMAL ACCOMODATION - ENT Exam ENT Exam: Mucous Membranes Moist - Respiratory Exam Additional comments: decreased lung sounds b/l - Cardiovascular Exam Cardiovascular Exam: REGULAR RHYTHM, +S1, +S2 - GI/Abdominal Exam GI & Abdominal Exam: Normal Bowel Sounds, Soft. absent: Tenderness - Extremities Exam Extremities exam: normal inspection - Neurological Exam Neurological exam: Alert, Oriented x3 - Psychiatric Exam Psychiatric exam: Normal Affect, Normal Mood - Skin Skin Exam: Normal Color Discharge Plan - Discharge Medications Prescriptions: Folic Acid 1 mg PO DAILY #30 tab Multivitamin Therapeutic Tab [Thera Tab] 1 tab PO 0800 #30 tab Thiamine HCl [B-1] 100 mg PO DAILY #30 tablet - Follow Up Plan Condition: FAIR Disposition: HOME/ ROUTINE Instructions: Syncope (Fainting) (DC), Alcohol Withdrawal (DC), Alcohol Abuse and Alcoholism (DC), Altered Mental Status (GEN) Additional Instructions: Please follow up at your clinic appointment at [facility] on September 28 at 4:00pm. Please refrain from alcohol and drug use. Please take your new medications Multi Vitamin, Thiamine and Folic Acid daily. If any symptoms reoccur please return to the Emergency Room. Referrals: [facility] at [facility] [Outside] PCP,NO [Primary Care Provider] - <Paradise Menendez - Last Filed: 09/20/17 09:19> Provider - Provider Date of Admission: 09/17/17 21:09 Attending physician: Paradise Menendez DO Primary care physician: NO PRIMARY CARE PROVIDER Hospital Course - Lab Results Lab Results: Micro Results 09/18/17 04:00 Urine Urine Culture - Final No Growth (<1,000 CFU/ML) Most Recent Lab Values WBC 10.2 10^3/ul (4.5-11.0) 09/19/17 05:40 RBC 3.55 10^6/uL (3.5-6.1) 09/19/17 05:40 Hgb 11.6 g/dL (14.0-18.0) L 09/19/17 05:40 Hct 34.5 % (42.0-52.0) L 09/19/17 05:40 MCV 97.2 fl (80.0-105.0) 09/19/17 05:40 MCH 32.7 pg (25.0-35.0) 09/19/17 05:40 MCHC 33.6 g/dl (31.0-37.0) 09/19/17 05:40 RDW 14.2 % (11.5-14.5) 09/19/17 05:40 Plt Count 215 10^3/uL (120.0-450.0) 09/19/17 05:40 MPV 9.0 fl (7.0-11.0) 09/19/17 05:40 Gran % 61.3 % (50.0-68.0) 09/19/17 05:40 Lymph % (Auto) 28.6 % (22.0-35.0) 09/19/17 05:40 [place] % (Auto) 8.9 % (1.0-6.0) H 09/19/17 05:40 Eos % (Auto) 0.7 % (1.5-5.0) L 09/19/17 05:40 Baso % (Auto) 0.5 % (0.0-3.0) 09/19/17 05:40 Gran # 6.23 (1.4-6.5) 09/19/17 05:40 Lymph # (Auto) 2.9 (1.2-3.4) 09/19/17 05:40 [place] # (Auto) 0.9 (0.1-0.6) H 09/19/17 05:40 Eos # (Auto) 0.1 (0.0-0.7) 09/19/17 05:40 Baso # (Auto) 0.05 K/mm3 (0.0-2.0) 09/19/17 05:40 pO2 163 mm/Hg (30-55) H 09/17/17 18:00 VBG pH 7.28 (7.32-7.43) L 09/17/17 18:00 VBG pCO2 42.0 (40-60) 09/17/17 18:00 VBG HCO3 19.7 mmol/l (21-28) L 09/17/17 18:00 VBG Total CO2 21.0 mmol.L (22-28) L 09/17/17 18:00 VBG O2 Sat (Calc) 99.4 % (40-65) H 09/17/17 18:00 VBG Base Excess -6.8 mmol/L (0.0-2.0) L 09/17/17 18:00 VBG Potassium 3.1 mmol/L (3.6-5.2) L 09/17/17 18:00 Sodium 145.0 mmol/L (132-148) 09/17/17 18:00 Chloride 117.0 mmol/L (98-107) H 09/17/17 18:00 Glucose 94 mg/dl (75-110) 09/17/17 18:00 Lactate 1.7 mmol/L (0.7-2.1) 09/17/17 18:00 FiO2 21.0 % 09/17/17 18:00 Sodium 140 mmol/L (132-148) 09/19/17 05:40 Potassium 4.0 mmol/L (3.6-5.0) 09/19/17 05:40 Chloride 106 mmol/L (98-107) 09/19/17 05:40 Carbon Dioxide 28 mmol/L (21-33) 09/19/17 05:40 Anion Gap 10 (10-20) 09/19/17 05:40 BUN 15 mg/dL (7-21) 09/19/17 05:40 Creatinine 0.7 mg/dl (0.8-1.5) L 09/19/17 05:40 Est GFR ( Amer) > 60 09/19/17 05:40 Est GFR (Non-Af Amer) > 60 09/19/17 05:40 Random Glucose 85 mg/dL (70-110) 09/19/17 05:40 Calcium 7.9 mg/dL (8.4-10.5) L 09/19/17 05:40 Phosphorus 2.4 mg/dL (2.5-4.5) L 09/19/17 05:40 Magnesium 1.7 mg/dL (1.7-2.2) 09/19/17 05:40 Total Bilirubin 0.8 mg/dL (0.2-1.3) 09/19/17 05:40 AST 31 U/L (17-59) 09/19/17 05:40 ALT 29 U/L (7-56) 09/19/17 05:40 Alkaline Phosphatase 57 U/L (38-126) 09/19/17 05:40 Lactate Dehydrogenase 530 U/L (333-699) 09/17/17 18:00 Total Creatine Kinase 213 U/L (35-230) 09/17/17 18:00 Troponin I < 0.01 ng/mL 09/17/17 18:00 Total Protein 5.7 g/dL (5.8-8.3) L 09/19/17 05:40 Albumin 2.9 g/dL (3.0-4.8) L 09/19/17 05:40 Globulin 2.8 gm/dL 09/19/17 05:40 Albumin/Globulin Ratio 1.0 (1.1-1.8) L 09/19/17 05:40 Triglycerides 67 mg/dL (35-160) 09/18/17 06:00 Cholesterol 124 mg/dL (130-200) L 09/18/17 06:00 LDL Cholesterol Direct 58 mg/dL (0-129) 09/18/17 06:00 HDL Cholesterol 52 mg/dL (29-60) 09/18/17 06:00 Venous Blood Potassium 3.1 mmol/L (3.6-5.2) L 09/17/17 18:00 Urine Color Yellow (YELLOW) 09/17/17 20:56 Urine Appearance Clear (CLEAR) 09/17/17 20:56 Urine pH 6.0 (4.7-8.0) 09/17/17 20:56 Ur Specific Marshall 1.020 (1.005-1.035) 09/17/17 20:56 Urine Protein Trace mg/dL (<30 mg/dL) H 09/17/17 20:56 Urine Glucose (UA) Negative mg/dL (NEGATIVE) 09/17/17 20:56 Urine Ketones Negative mg/dL (NEGATIVE) 09/17/17 20:56 Urine Blood Negative (NEGATIVE) 09/17/17 20:56 Urine Nitrate Negative (NEGATIVE) 09/17/17 20:56 Urine Bilirubin Negative (NEGATIVE) 09/17/17 20:56 Urine Urobilinogen 0.2 E.U./dL (<1 E.U./dL) 09/17/17 20:56 Ur Leukocyte Esterase Negative Tim/uL (NEGATIVE) 09/17/17 20:56 Urine RBC 0 - 2 /hpf (0-2) 09/17/17 20:56 Urine WBC 0 - 2 /hpf (0-6) 09/17/17 20:56 Ur Epithelial Cells None /hpf (0-5) 09/17/17 20:56 Urine Bacteria Occ (NEG) 09/17/17 20:56 Salicylates < 1 mg/dL (2.0-20.0) L 09/17/17 18:00 Urine Opiates Screen Negative (NEGATIVE) 09/17/17 20:56 Urine Methadone Screen Negative (NEGATIVE) 09/17/17 20:56 Acetaminophen < 10.0 ug/ml (10.0-20.0) L 09/17/17 18:00 Ur Barbiturates Screen Negative (NEGATIVE) 09/17/17 20:56 Ur Phencyclidine Scrn Negative (NEGATIVE) 09/17/17 20:56 Ur Amphetamines Screen Negative (NEGATIVE) 09/17/17 20:56 U Benzodiazepines Scrn Negative (NEGATIVE) 09/17/17 20:56 U Oth Cocaine Metabols Negative (NEGATIVE) 09/17/17 20:56 U Cannabinoids Screen Positive (NEGATIVE) H 09/17/17 20:56 Alcohol, Quantitative 218 mg/dL (0-10) H 09/17/17 18:00 Attending/Attestation - Attestation I have personally seen and examined this patient.: Yes I have fully participated in the care of the patient.: Yes I have reviewed all pertinent clinical information, including history, physical exam and plan: Yes Notes (Text): Patient seen and examined by me with resident at 09:50AM 09/19/17. Case including discharge plan discussed with resident. Agree with above with following additions/corrections. Patient is a 62-year-old male with past medical history significant for alcohol abuse and tobacco abuse that presented to the emergency room [place] the [place]. Patient was found to have altered mental status likely secondary to alcohol and marijuana use. Please see H&P for full details. Patient was admitted with altered mental status likely secondary to alcohol use , hypertension, and leukocytosis. Alcohol level at admission was 218. UDS was positive for cannabinoids. Patient was started on CIWA protocol. Patient was given banana bag and placed on IV fluids. CT head per radiology showed no acute intracranial abnormalities, no significant findings to account for clinical presentation. Patient was continued on multivitamin, thiamine, and folic acid. Patient was initially scoring a 1 on CIWA protocol. Patient scoring 0 on day of discharge. No withdrawal symptoms were noted. No tremors are present. Altered mental status resolved following day. This is likely secondary to alcohol intoxication. Hypotension also resolved with IV fluids. There were no signs of infection. Blood and urine culture were negative. Patient did have leukocytosis on admission which was likely reactive. This did resolve. Patient was counseled at length on alcohol, marijuana, and tobacco cessation. All symptoms resolved upon discharge. Patient was eating and ambulating well. Patient wanted to go home. Patient was discharged home. On day of discharge, patient stated he was feeling well. Patient eating and ambulating well. No tremors. Patient AAOx3. Denies any chest pain, shortness of breath. No fevers or chills. No nausea, vomiting, or abdominal pain. No headaches or dizziness. No dysuria. No lightheadedness. No change in vision. No diarrhea or constipation. Physical exam: Gen: Awake and alert sitting up in bed in no acute distress HEENT: Normocephalic, atraumatic. Extraocular muscles intact, pupils equal reactive. No scleral icterus. Oropharynx is pink and moist, no pharyngeal erythema or exudate appreciated. Neck is supple. Cardiovascular: Normal rhythm. Normal S1, S2. No murmurs, rubs, or gallops appreciated Pulmonary: Normal respiratory effort. Decreased breath sounds. No rhonchi, rales or wheezing appreciated. Gastrointestinal: Soft, nontender, nondistended, positive bowel sounds all 4 quadrants, no guarding. Musculoskeletal: Normal range of motion all extremities, no calf tenderness, no edema appreciated Central nervous system: AAO x 3. Cranial nerves 2-12 mostly intact Dermatologic: Skin warm and dry Please see chart for full details. Follow up instructions. Follow up at the [facility] on September 28 at 4 PM. Patient counseled on cessation of alcohol, tobacco, and drug use. Patient to take multivitamin, thiamine, folic acid daily. All instructions explained to patient in detail. Patient both understands and agrees to all instructions. Time spent in discharging the patient including chart review, medication reconciliation, discussion with the patient, medical surgical tech, consultants, and nursing staff was approximately 35 minutes.
== END 2017-09-19 12:30 | disposition home or self-care (01) ==
LOC: EDBD → ED 17:46 → ERH 21:09 → 2RNO 22:12
PROVIDERS: ADMIT Internal Medicine; ATTEND Hospitalist
DX: F10.129 Alcohol abuse with intoxication, unspecified (principal); E86.0 Dehydration; I95.89 Other hypotension; F12.90 Cannabis use, unspecified, uncomplicated; I10 Essential (primary) hypertension; F17.210 Nicotine dependence, cigarettes, uncomplicated; D72.829 Elevated white blood cell count, unspecified; Y90.7 Blood alcohol level of 200-239 mg/100 ml
CPT/HCPCS: 36415; 70450; 71045; 80053; 80061; 81001; 82550; 82803; 83615; 83735; 84100; 84484; 85025; 87040; 87086; 93005; 96361; 96365; 96372; 96375; 97116; 97161; 99285; C9113; G0378; G0480; G8978; G8979; G8980; J1644; J3411; J7030